=== PATIENT | female | born 1950 | race Caucasian/White ===

== ENCOUNTER 2016-08-28 08:29 | Emergency (ER) | payer OTHER ==
[~2016-08-28] VITALS: Wt 69.0 kg
[~2016-08-28 08:29] MED LIST: ibuprofen PO
--- NOTE | 2016-08-28 09:00 | ERD ---
ER Documentation Chief Complaint Date/Time DATE: 08/28/16 TIME: 08:59 Chief Complaint frequent sudden falls from weakness for the past few mos, no trauma noted HPI 65-year-old female with no significant previous medical history ambulatory to the ED complaining of generalized weakness and falls. 2 months ago was walking felt weak and fell to the ground and this happened again 1 week ago. There was no syncope or loss of consciousness. No head injury. She denies headache or neck pain. No visual changes, focal weakness or numbness. Denies chest pain or palpitations. No shortness of breath or cough. No abdominal pain, nausea vomiting. No dysuria, polyuria, hematuria or flank pain. No URI symptoms or rhinorrhea. Patient admits to recent insomnia but denies anorexia or weight loss. Admits to increasing anxiety but denies depression, suicidal homicidal ideations. ROS All systems reviewed and are negative except as per history of present illness. Medications Home Meds Discontinued Reported Medications [ibuprofen] No Conflict Check, PO DAILY Y for PAIN 07/10/14 Allergies Allergies: Coded Allergies: No Known Allergy (Unverified , 08/28/16) PMhx/Soc Reviewed in chart. As per HPI. History of Surgery: Yes (Tubal ligation) Anesthesia Reaction: No Hx Neurological Disorder: No Hx Respiratory Disorders: Yes (trouble breathing) Hx Cardiac Disorders: No Hx Psychiatric Problems: No Hx Miscellaneous Medical Probl: No Hx Alcohol Use: No Hx Substance Use: No Hx Tobacco Use: No FmHx Sister: Diabetes Physical Exam Vitals Vital Signs Date Time Temp Pulse Resp B/P Pulse Ox O2 Delivery O2 Flow Rate FiO2 08/28/16 08:33 98.3 59 19 181/79 98 Physical Exam Const: Alert, NAD Head: Atraumatic Eyes: Normal Conjunctiva ENT: Normal External Ears, Nose and Mouth. Neck: Full range of motion.Nontender. Resp: Clear to auscultation bilaterally Cardio: Regular rate and rhythm, no murmurs Abd: Soft, non tender, non distended. Normal bowel sounds Skin: No petechiae or rashes Back: No midline or flank tenderness Ext: No cyanosis, or edema Neur: Awake and alert. CN II-XII grossly intact. Normal gait. Motor and sensory equal bilaterally. Psych: Anxious Result Diagram: 08/28/1613 08/28/1613 Results 24 hrs Laboratory Tests Test 08/28/16 09:05 08/28/16 09:13 Urine Color LT. YELLOW Urine Clarity CLEAR Urine pH 6.0 Urine Specific [place] 1.010 Urine Ketones NEGATIVE Urine Nitrite NEGATIVE Urine Bilirubin NEGATIVE Urine Urobilinogen 0.2 E.U./dL Urine Leukocyte Esterase 2+ Urine Microscopic RBC 5-10/HPF Urine Microscopic WBC 5-10/HPF Urine Epithelial Cells FEW Urine Bacteria FEW Urine Hemoglobin NEGATIVE Urine Glucose NEGATIVE% Urine Total Protein NEGATIVE Thyroid Stimulating Hormone (TSH) 2.310MIU/L Urine Opiates Screen Negative Urine Barbiturates Negative Urine Amphetamines Screen Negative Urine Benzodiazepines Screen Negative Urine Cocaine Screen Negative Urine Cannabinoids Negative White Blood Count 4.410^3/ul Red Blood Count 4.1310^6/ul Hemoglobin 13.3g/dl Hematocrit 39.8% Mean Corpuscular Volume 96.4fl Mean Corpuscular Hemoglobin 32.2pg Mean Corpuscular Hemoglobin Concent 33.4g/dl Red Cell Distribution Width 13.4% Platelet Count 35974^3/UL Mean Platelet Volume 10.1fl Neutrophils % 55.6% Lymphocytes % 29.3% Monocytes % 11.7% Eosinophils % 2.5% Basophils % 0.7% Nucleated Red Blood Cells % 0.0/100WBC Neutrophils # 2.410^3/ul Lymphocytes # 1.310^3/ul Monocytes # 0.510^3/ul Eosinophils # 0.110^3/ul Basophils # 0.010^3/ul Nucleated Red Blood Cells # 0.010^3/ul Sodium Level 145mmol/L Potassium Level 4.0mmol/L Chloride Level 104mmol/L Carbon Dioxide Level 29mmol/L Anion Gap 16 Blood Urea Nitrogen 12mg/dl Creatinine 0.73mg/dl Glucose Level 105mg/dl Calcium Level 9.3mg/dl Total Bilirubin 0.4mg/dl Direct Bilirubin 0.00mg/dl Indirect Bilirubin 0.4mg/dl Aspartate Amino Transf (AST/SGOT) 46IU/L Alanine Aminotransferase (ALT/SGPT) 62IU/L Alkaline Phosphatase 170IU/L Troponin I < 0.012ng/ml Total Protein 8.0g/dl Albumin 4.4g/dl Globulin 3.60g/dl Albumin/Globulin Ratio 1.22 Ethyl Alcohol Level < 10.0mg/dl EKG: TIME: 09:04. Sinus bradycardia. Ventricular rate 58. No ST-T wave changes. No axis deviation or ectopy. EP Interpretation: Sinus bradycardia otherwise normal ECG. IMAGING: PROCEDURE: XR Chest. CLINICAL INDICATION: chest pain, weakness TECHNIQUE: Single frontal view of the chest was obtained COMPARISON: None FINDINGS: The heart and mediastinum are within normal limits. The lungs are clear. There is no pleural effusion or pneumothorax. RPTAT: AA IMPRESSION: No acute disease. .Nino Wilkerson MD, MD Date Time Electronically viewed and signed by .Nino Wilkerson MD, MD on 08/28/2016 09: 33 .S/ Procedures/MDM DOCUMENTS REVIEWED: ED nurse, prior ED, prior record MEDICAL DECISION MAKIN-year-old female with no significant previous medical history ambulatory to the ED complaining of generalized weakness and falls. 2 months ago was walking felt weak and fell to the ground and this happened again 1 week ago. No focal deficit, headache or indication for neuroimaging. No evidence of acute injury. No electrolyte abnormalities, glucose intolerance or hypothyroidism. No cardiac dysrhythmia. or syncope. Insomnia and likely depression. In the absence of sign of serious disease appropriate for discharge with precautionary instructions and urgent outpatient followup. Counseled patient and family regarding diagnostic workup, diagnosis and need for followup. Understands to return to ED if symptoms recur, worsen or any other concerns. Departure Diagnosis: Primary Impression: Fall with no significant injury Encounter type: initial encounter Qualified Code: W19.XXXA - Fall with no significant injury, initial encounter Additional Impression: Insomnia Insomnia type: unspecified Qualified Code: G47.00 - Insomnia, unspecified type Condition: JUDSON Keenan MD August 28, 2016 09:00
--- NOTE | 2016-08-28 09:33 | RADRPT ---
PROCEDURE: XR Chest. CLINICAL INDICATION: chest pain, weakness TECHNIQUE: Single frontal view of the chest was obtained COMPARISON: None FINDINGS: The heart and mediastinum are within normal limits. The lungs are clear. There is no pleural effusion or pneumothorax. RPTAT: AA IMPRESSION: No acute disease. .Nino Wilkerson MD, MD Date Time Electronically viewed and signed by .Nino Wilkerson MD, on 08/28/2016 09:33 .S/
[2016-08-28 09:44] LABS: ADD SCAN DIFF NO
[2016-08-28 09:47] LABS: BASOPHILS % 0.7 % (0.0-2.0); EOSINOPHILS # 0.1 10^3/ul (0.0-0.5); EOSINOPHILS % 2.5 % (0.0-7.0); HEMATOCRIT 39.8 % (37.0-47.0); HEMOGLOBIN 13.3 g/dl (12.0-16.0); LYMPHOCYTES # 1.3 10^3/ul (0.8-2.9); LYMPHOCYTES % 29.3 % (15.0-51.0); MEAN CORPUSCULAR HEMOGLOBIN 32.2 pg (29.0-33.0); MEAN CORPUSCULAR HGB CONC 33.4 g/dl (32.0-37.0); MEAN CORPUSCULAR VOLUME 96.4 fl (82.0-101.0); MEAN PLATELET VOLUME 10.1 fl (7.4-10.4); MONOCYTE # 0.5 10^3/ul (0.3-0.9); MONOCYTES % 11.7 % (0.0-11.0); NEUTROPHIL # 2.4 10^3/ul (1.6-7.5); NEUTROPHILS % 55.6 % (39.0-77.0); PLATELET COUNT 269 10^3/UL (140-415); RED BLOOD COUNT 4.13 10^6/ul (4.20-5.40); RED CELL DISTRIBUTION WIDTH 13.4 % (11.5-14.5); WHITE BLOOD COUNT 4.4 10^3/ul (4.8-10.8)
[2016-08-28 10:03] LABS: ALBUMIN 4.4 g/dl (3.3-4.9); SODIUM 145 mmol/L (135-144)
[2016-08-28 10:06] LABS: ALANINE AMINOTRANSFERASE 62 IU/L (13-69); ALBUMIN/GLOBULIN RATIO 1.22; ALKALINE PHOSPHATASE 170 IU/L (42-121); ASPARTATE AMINO TRANSFERASE 46 IU/L (15-46); BILIRUBIN,INDIRECT 0.4 mg/dl (0-1.1); BILIRUBIN,TOTAL 0.4 mg/dl (0.2-1.3); BLOOD UREA NITROGEN 12 mg/dl (7-20); CALCIUM 9.3 mg/dl (8.4-10.2); CARBON DIOXIDE 29 mmol/L (21-31); CREATININE 0.73 mg/dl (0.44-1.00); GLUCOSE 105 mg/dl (70-220)
[2016-08-28 10:19] LABS: TROPONIN-I < 0.012 ng/ml (0.00-0.12)
[2016-08-28 10:31] LABS: ANION GAP 16 (8-16); CHLORIDE 104 mmol/L (97-110); ETHANOL < 10.0 mg/dl
[2016-08-28 10:57] LABS: ADD UMIC YES; URINE BILIRUBIN (Dip) NEGATIVE (NEGATIVE); URINE BLOOD (Dip) NEGATIVE (NEGATIVE); URINE COLOR LT. YELLOW (YELLOW); URINE GLUCOSE (Dip) NEGATIVE (NEGATIVE); URINE KETONES (Dip) NEGATIVE (NEGATIVE); URINE LEUKOCYTE ESTERASE (Dip) 2+ (NEGATIVE); URINE NITRITE (Dip) NEGATIVE (NEGATIVE); URINE TOTAL PROTEIN (Dip) NEGATIVE (NEGATIVE); URINE UROBILINOGEN (Dip) 0.2 E.U./dL (0.1-1.0)
[2016-08-28 11:26] LABS: BARBITURATES Negative (NEGATIVE); BENZODIAZEPINES Negative (NEGATIVE); CANNABINOIDS Negative (NEGATIVE); COCAINE Negative (NEGATIVE); OPIATES Negative (NEGATIVE)
[2016-08-28 11:38] LABS: BACTERIA,URINE FEW
== END 2016-08-28 14:15 | disposition home or self-care (01) ==
LOC: E/R 08:29
DX: G47.00 Insomnia, unspecified (principal); Z04.3 Encounter for examination and observation following other accident
CPT/HCPCS: 71010; 80053; 80306; 80307; 81001; 81003; 84443; 84484; 85025; Z7502